=== PATIENT | male | born 1995 | race Two or more races ===

== ENCOUNTER 2021-10-01 22:11 | Emergency (ER) | payer MEDICAID, OTHER ==
[~2021-10-01] VITALS: Ht 167.6 cm; Wt 49.9 kg
[2021-10-01 23:45] VITALS: BP 133/74
== END 2021-10-02 00:19 ==
LOC: ER 22:16
DX: S00.33XA Contusion of nose, initial encounter (principal); S00.83XA Contusion of other part of head, initial encounter; Y04.2XXA Assault by strike against or bumped into by another person, initial encounter; Y93.89 Activity, other specified; Y92.89 Other specified places as the place of occurrence of the external cause; Y99.8 Other external cause status